=== PATIENT | male | born 1965 | race Caucasian/White ===

== ENCOUNTER 2017-01-28 15:55 | Inpatient (IN) | payer OTHER ==
[~2017-01-28] VITALS: Ht 177.8 cm; Wt 86.2 kg
[~2017-01-28 15:55] MED LIST: BACLOFEN20 MG; CLINDAMYCIN300 M1 PO; COZ50 PO; FLEXERIL10 MG PO; INHALER; LAC PO; LEVAQUIN750 MG PO; LOSARTAN POTASS25 M1 PO; MAGOX 400241.3 MG PO; MORPHINE SULFAT15 MG; MORPHINE SULFAT30 M2 PO; NOR10T PO; NOR5 PO; NPHOS PO
[2017-01-28 17:05] LABS: BASOPHIL % 0.5 % (0-2); PLATELET COUNT 238 x10^3mcL (130-400); RED CELL DISTRIBUTION WIDTH 13.8 % (11.5-14.5)
[2017-01-28 17:13] LABS: CALCIUM 8.6 mg/dL (8.5-10.1); CARBON DIOXIDE 30.2 mmol/L (21-32); CHLORIDE SERUM 108 mmol/L (98-107); CREATININE SERUM 0.7 mg/dL (0.7-1.3); GFR1 > 60 mL/min; GLUCOSE SERUM 116 mg/dL (74-106); POTASSIUM SERUM 3.5 mmol/L (3.5-5.1); SODIUM SERUM 145 mmol/L (136-145)
[2017-01-28 17:21] LABS: ALBUMIN 3.9 g/dL (3.4-5.0); ALKALINE PHOSPHATASE 71 U/L (46-116); ALT/SGPT 28 U/L (16-63); AST/SGOT 33 U/L (15-37); BILIRUBIN TOTAL 0.2 mg/dL (0.20-1.00); CHOLESTEROL 192 mg/dL (<200); LACTIC DEHYDROGENASE (LDH) 196 U/L (100-190); PHOSPHOROUS 2.5 mg/dL (2.5-4.9); TOTAL PROTEIN, SERUM 7.3 g/dL (6.4-8.2); URIC ACID 3.2 mg/dL (3.5-7.2)
[2017-01-28 18:05] LABS: AMPHETAMINE QUAL UR NONE DETECTED (NEG <=1000)
[2017-01-28] MEDS ORDERED: BACLOFEN20 MG PO (18:39)
[2017-01-28] MEDS ORDERED: LOSARTAN POTASS25 M1 PO (18:56)
[2017-01-28] MEDS ORDERED: AMLODIPINE BES2.5 M1 PO (18:56)
[2017-01-28 19:39] LABS: CHOLESTEROL/HDL RATIO 3.6; MAGNESIUM 2.1 mg/dL (1.8-2.4)
[2017-01-28 19:45] LABS: T3 TOTAL 0.91 ng/mL
[2017-01-28 19:47] LABS: FREE T4 1.18 ng/dL (0.76-1.46); FREE THYROXINE INDEX 3.3 ug/dL (1.4-4.5); T4(THYROXINE) 8.9 ug/dL (4.7-13.3)
[2017-01-28 19:57] VITALS: BP 131/81
[2017-01-29 06:06] VITALS: BP 136/92
[2017-01-29 08:13] VITALS: BP 144/92
[2017-01-29 10:25] LABS: UA SPECIFIC GRAVITY 1.015 (1.005-1.035); microscopic required? YES; urine erythrocyte 1+ (NEGATIVE)
[2017-01-29 12:47] VITALS: BP 150/94
[2017-01-29 16:43] VITALS: BP 149/99
== END 2017-01-29 17:56 | disposition left against medical advice (07) | DRG 770 ==
LOC: ED 15:55 → DU 18:34
PROVIDERS: Emergency Medicine; ADMIT Family Medicine
DX: F11.229 Opioid dependence with intoxication, unspecified (principal); G92 Toxic encephalopathy; S09.90XA Unspecified injury of head, initial encounter; E87.8 Other disorders of electrolyte and fluid balance, not elsewhere classified; R73.03 Prediabetes; T40.0X1A Poisoning by opium, accidental (unintentional), initial encounter; M54.5 Low back pain; G89.29 Other chronic pain; Z91.81 History of falling; W18.30XA Fall on same level, unspecified, initial encounter; Y93.9 Activity, unspecified; Y92.018 Other place in single-family (private) house as the place of occurrence of the external cause; I10 Essential (primary) hypertension; Z82.49 Family history of ischemic heart disease and other diseases of the circulatory system; E78.2 Mixed hyperlipidemia
CPT/HCPCS: 82962; 83880; 84439; G0480; J2060; J2270; J2310; J7030